=== PATIENT | male | born 1950 | race African-American/Black ===

== ENCOUNTER 2019-10-19 16:39 | Inpatient (IN) ==
[2019-10-19] MEDS ORDERED: ASPIRIN 325 MG TABLET PO STA (17:06)
[2019-10-19] MEDS ORDERED: ENOXAPARIN 100 MG/ML SYRINGE SUBCUT STA (17:16)
[2019-10-19] MEDS ORDERED: NITROGLYCERIN SL 0.4 MG TABLET SL PRN ×2 (17:17→19:04)
[2019-10-19] MEDS ORDERED: MORPHINE 4 MG/1 ML VIAL IV STA (17:17)
[2019-10-19] MEDS ORDERED: SODIUM CHLORIDE 0.9% 1,000 ML IV STA (17:30)
[2019-10-19 17:33] LABS: Basophils % 0.6 % (0.0-0.8); Eosinophils # 0.2 10*3/uL (0.0-0.87); Eosinophils % 3.7 % (0.00-10.9); Hematocrit 36.4 VOL% (42.0-52.0); Hemoglobin 11.8 GM/DL (14.0-18.0); Immature Granulocytes % 0.9 %; Immature Granulocytes Absolute 0.05 #; Lymphocytes # 0.7 10*3/uL (1.4-4.0); Lymphocytes % 12.9 % (21.2-54.2); Mean Corpuscular HGB Conc 32.4 GM/DL (32-36); Mean Corpuscular Volume 90.8 FL (87-102); Mean Platelet Volume 9.8 FL (9.6-12.0); Monocytes % 13.2 % (1.7-12.7); Neutrophils % 68.7 % (38.7-73.9); Platelet Count 234 T/CUMM (130-400); Red Blood Count 4.01 MC/CUMM (3.8-5.5); Red Cell Distribution Width 12.5 % (9.3-17.3); White Blood Count 5.4 T/CUMM (4-12)
[2019-10-19] MEDS ORDERED: MIDAZOLAM 2 MG/2 ML VIAL ONE (17:45)
[2019-10-19] MEDS ORDERED: fentaNYL 100 MCG/2 ML VIAL ONE (17:46)
[2019-10-19] MEDS ORDERED: LIDOCAINE 1% 20 ML VIAL ONE (17:47)
[2019-10-19 17:53] LABS: Albumin 3.3 G/DL (3.4-5.0); Bilirubin,Total 0.5 MG/DL (0.2-1.0); Osmolality,Calculated 279.2 MOS/KG (273-304); Total Protein 8.1 G/DL (6.4-8.3)
[2019-10-19 17:55] LABS: PT Patient Result 10.9 SECS (9.8-11.9)
[2019-10-19] MEDS ORDERED: TIROFIBAN 5,000 MCG/100 ML PREMIX IV ONE (18:16)
[2019-10-19] MEDS ORDERED: CLOPIDOGREL 300 MG TABLET ONE (18:46)
[2019-10-19] MEDS ORDERED: GLUCAGON 1 MG VIAL IM PRN (18:58)
[2019-10-19] MEDS ORDERED: ACETAMINOPHEN 325 MG TABLET PO PRN (18:58)
[2019-10-19] MEDS ORDERED: DEXTROSE 50% 25 GM/50 ML VIAL IV PRN (18:58)
[2019-10-19] MEDS ORDERED: TIROFIBAN 5,000 MCG/100 ML PREMIX IV SCH (19:00)
[2019-10-19] MEDS ORDERED: SODIUM CHLORIDE 0.9% 1,000 ML IV SCH (19:00)
[2019-10-19] MEDS ORDERED: FUROSEMIDE 40 MG/4 ML VIAL IV ONE (19:05)
[2019-10-19] MEDS ORDERED: FUROSEMIDE 40 MG/4 ML VIAL ONE (19:11)
[2019-10-19] MEDS ORDERED: ATORVASTATIN 40 MG TABLET PO SCH (21:00)
[2019-10-19] MEDS: INSULIN REGULAR 100 UNIT/ML SUBCUT SCH (21:27)
[2019-10-19] MEDS: BENZONATATE 100 MG CAPSULE PO PRN (21:27)
[2019-10-19] MEDS: carvediloL 12.5 MG TABLET PO SCH (21:27)
[2019-10-20 06:31] LABS: Basophils % 0.5 % (0.0-0.8); Eosinophils # 0.1 10*3/uL (0.0-0.87); Hematocrit 35.9 VOL% (42.0-52.0); Hemoglobin 11.8 GM/DL (14.0-18.0); Immature Granulocytes % 0.5 %; Immature Granulocytes Absolute 0.03 #; Lymphocytes # 0.6 10*3/uL (1.4-4.0); Lymphocytes % 9.5 % (21.2-54.2); Mean Corpuscular HGB Conc 32.9 GM/DL (32-36); Mean Corpuscular Volume 89.5 FL (87-102); Mean Platelet Volume 9.6 FL (9.6-12.0); Monocytes % 11.8 % (1.7-12.7); Neutrophils % 75.7 % (38.7-73.9); Platelet Count 233 T/CUMM (130-400); Red Blood Count 4.01 MC/CUMM (3.8-5.5); Red Cell Distribution Width 12.3 % (9.3-17.3); White Blood Count 6.1 T/CUMM (4-12)
[2019-10-20 07:13] LABS: Calcium 8.8 MG/DL (8.5-10.1); Osmolality,Calculated 277.2 MOS/KG (273-304); Risk Ratio 4.32; VLDL CHOLESTEROL 27.2 MG/DL
[2019-10-20 07:17] LABS: Troponin I 5.48 NG/ML (0.00-0.045)
[2019-10-20] MEDS ORDERED: ATORVASTATIN 80 MG TABLET PO SCH (07:32)
[2019-10-20] MEDS: INSULIN REGULAR 100 UNIT/ML SUBCUT SCH ×4 (09:09→21:03)
[2019-10-20] MEDS: hydroCHLOROthiazide 25 MG TABLET PO SCH (10:18)
[2019-10-20] MEDS: LOSARTAN 50 MG TABLET PO SCH (10:18)
[2019-10-20] MEDS: GLIMEPIRIDE 4 MG TABLET PO SCH (10:18)
[2019-10-20] MEDS: carvediloL 12.5 MG TABLET PO SCH ×2 (10:18→17:34)
[2019-10-20] MEDS: CLOPIDOGREL 75 MG TABLET PO SCH (10:18)
[2019-10-20] MEDS: ASPIRIN EC 81 MG TABLET PO SCH (10:18)
[2019-10-20] MEDS: EZETIMIBE 10 MG TABLET PO SCH (10:18)
[2019-10-20] MEDS: PANTOPRAZOLE 40 MG TABLET PO SCH (10:19)
[2019-10-20] MEDS: sitaGLIPtin 100 MG TABLET PO SCH (10:19)
[2019-10-20 11:39] LABS: Apearance,Urine CLEAR (Clear); Bacteria,Urine Occasional /HPF (Few); Bilirubin,Urine Negative (Negative); Blood, Urine Large mg/dL (Negative); Glucose,Urine (UA) Negative (Negative); Ketones,Urine Negative (Negative); Nitrite,Urine Negative (Negative); Protein,Urine Negative; RBC,Urine 254 /HPF (0-4); Squamous Epithelial Cell,Urine Occasional /HPF (0-10); Urine Color Yellow (Yellow); Urine Specific Gravity 1.016 (1.001-1.035); Urine Urobilinogen < 2.0 EU/DL (0.2-1.0); WBC,Urine 6 /HPF (0-6)
[2019-10-20] MEDS: BENZONATATE 100 MG CAPSULE PO PRN ×2 (12:01→21:00)
[2019-10-21 05:46] LABS: Basophils % 0.3 % (0.0-0.8); Eosinophils # 0.3 10*3/uL (0.0-0.87); Eosinophils % 4.4 % (0.00-10.9); Hemoglobin 11.1 GM/DL (14.0-18.0); Immature Granulocytes % 0.3 %; Immature Granulocytes Absolute 0.02 #; Lymphocytes # 0.4 10*3/uL (1.4-4.0); Mean Corpuscular HGB Conc 32.6 GM/DL (32-36); Mean Corpuscular Volume 89.9 FL (87-102); Mean Platelet Volume 9.6 FL (9.6-12.0); Monocytes % 12.1 % (1.7-12.7); Neutrophils % 75.9 % (38.7-73.9); Platelet Count 198 T/CUMM (130-400); Red Blood Count 3.78 MC/CUMM (3.8-5.5); Red Cell Distribution Width 12.4 % (9.3-17.3); White Blood Count 5.9 T/CUMM (4-12)
[2019-10-21 06:03] LABS: Blood Urea Nitrogen 33 MG/DL (7-18); Estimated Glom Filtration Rate 76 ML/MIN; Glucose 146 MG/DL (74-106)
[2019-10-21] MEDS: INSULIN REGULAR 100 UNIT/ML SUBCUT SCH (07:55)
[2019-10-21 08:05] VITALS: BP 109/68
[2019-10-21] MEDS: PANTOPRAZOLE 40 MG TABLET PO SCH (08:59)
[2019-10-21] MEDS: EZETIMIBE 10 MG TABLET PO SCH (08:59)
[2019-10-21] MEDS: CLOPIDOGREL 75 MG TABLET PO SCH (09:00)
[2019-10-21] MEDS: ASPIRIN EC 81 MG TABLET PO SCH (09:00)
[2019-10-21] MEDS: carvediloL 12.5 MG TABLET PO SCH (09:00)
[2019-10-21] MEDS: LOSARTAN 50 MG TABLET PO SCH (09:00)
[2019-10-21] MEDS: sitaGLIPtin 100 MG TABLET PO SCH (09:00)
[2019-10-21] MEDS: GLIMEPIRIDE 4 MG TABLET PO SCH (09:00)
[2019-10-21] MEDS: hydroCHLOROthiazide 25 MG TABLET PO SCH (09:00)
[2019-12-01] MEDS ORDERED: LEUPROLIDE 30 MG IM SCH (09:00)
== END 2019-10-21 10:21 | disposition home or self-care (01) | DRG 247 ==
LOC: N.ED 16:39 → N.EDINP 17:48 → N.TELES 20:06
PROVIDERS: ADMIT Internal Medicine Cardiovascular Disease; ATTEND Internal Medicine Cardiovascular Disease

== ENCOUNTER 2021-11-01 22:35 | Observation (INO) ==
[2021-11-01 23:28] LABS: Basophils % 0.4 % (0.0-0.8); Eosinophils # 0.1 10*3/uL (0.0-0.87); Eosinophils % 1.7 % (0.00-10.9); Hematocrit 38.6 VOL% (42.0-52.0); Hemoglobin 12.5 GM/DL (14.0-18.0); Immature Granulocytes % 0.6 %; Immature Granulocytes Absolute 0.03 #; Lymphocytes # 0.9 10*3/uL (1.4-4.0); Mean Corpuscular HGB Conc 32.4 GM/DL (32-36); Mean Corpuscular Volume 88.3 FL (87-102); Monocytes # 0.6 10*3/uL (0.11-0.8); Monocytes % 11.5 % (1.7-12.7); Neutrophils % 68.8 % (38.7-73.9); Platelet Count 223 T/CUMM (130-400); Red Blood Count 4.37 MC/CUMM (3.8-5.5); Red Cell Distribution Width 13.1 % (9.3-17.3); White Blood Count 5.2 T/CUMM (4-12)
[2021-11-01 23:46] LABS: Calcium 9.3 MG/DL (8.5-10.1); Osmolality,Calculated 277.2 MOS/KG (273-304); Potassium 3.1 MMOL/L (3.5-5.1)
[2021-11-01] MEDS ORDERED: ASPIRIN CHEW 81 MG TABLET PO STA (23:53)
[2021-11-01] MEDS ORDERED: SODIUM CHLORIDE 0.9% 1,000 ML IV STA (23:53)
[2021-11-02] MEDS ORDERED: POTASSIUM CHLORIDE 20 MEQ TABLET PO STA (01:00)
[2021-11-02] MEDS ORDERED: MAGNESIUM OXIDE 400 MG TABLET PO ONE (01:01)
[2021-11-02] MEDS ORDERED: ONDANSETRON 4 MG/2 ML VIAL IV PRN (01:14)
[2021-11-02] MEDS ORDERED: POTASSIUM CHLORIDE RIDER 10 MEQ/100 ML PREMIX IV PRN (01:14)
[2021-11-02] MEDS ORDERED: GLUCAGON 1 MG VIAL IM PRN (01:14)
[2021-11-02] MEDS ORDERED: ACETAMINOPHEN 325 MG TABLET PO PRN (01:14)
[2021-11-02] MEDS ORDERED: MAGNESIUM SULF RIDER 4 GM/100 ML PREMIX IV PRN (01:14)
[2021-11-02] MEDS ORDERED: MAGNESIUM SULF RIDER 2 GM/50 ML PREMIX IV PRN (01:14)
[2021-11-02] MEDS ORDERED: NITROGLYCERIN SL 0.4 MG TABLET SL PRN (01:24)
[2021-11-02] MEDS ORDERED: DEXTROSE 10% 250 ML BAG IV PRN (01:31)
[2021-11-02] MEDS: POTASSIUM CHLORIDE 20 MEQ TABLET PO PRN ×2 (03:17→06:18)
[2021-11-02 05:23] LABS: Basophils % 0.4 % (0.0-0.8); Eosinophils # 0.1 10*3/uL (0.0-0.87); Eosinophils % 1.7 % (0.00-10.9); Hematocrit 39.7 VOL% (42.0-52.0); Hemoglobin 12.7 GM/DL (14.0-18.0); Immature Granulocytes % 0.4 %; Immature Granulocytes Absolute 0.02 #; Lymphocytes % 22.1 % (21.2-54.2); Mean Corpuscular Volume 90.2 FL (87-102); Mean Platelet Volume 10.1 FL (9.6-12.0); Monocytes # 0.6 10*3/uL (0.11-0.8); Monocytes % 12.1 % (1.7-12.7); Neutrophils % 63.3 % (38.7-73.9); Platelet Count 242 T/CUMM (130-400); Red Cell Distribution Width 13.1 % (9.3-17.3); White Blood Count 4.6 T/CUMM (4-12)
[2021-11-02 05:53] LABS: Calcium 9.4 MG/DL (8.5-10.1); Potassium 3.5 MMOL/L (3.5-5.1); Risk Ratio 3.36; Thyroid Stimulating Hormone 3.19 uIU/ml (0.358-3.74); VLDL Cholesterol 14.2 MG/DL
[2021-11-02] MEDS ORDERED: ISOSORBIDE MONONITRATE 60 MG TABLET PO SCH (09:00)
[2021-11-02] MEDS ORDERED: metOLazone 5 MG TABLET PO SCH (09:00)
[2021-11-02] MEDS: INSULIN REGULAR 100 UNIT/ML SUBCUT SCH ×4 (10:10→22:36)
[2021-11-02] MEDS: carvediloL 12.5 MG TABLET PO SCH ×2 (10:12→21:08)
[2021-11-02] MEDS: ENOXAPARIN 40 MG/0.4 ML SYRINGE SUBCUT SCH (10:12)
[2021-11-02] MEDS: FUROSEMIDE 40 MG TABLET PO SCH ×2 (10:12→21:08)
[2021-11-02] MEDS: POTASSIUM CHLORIDE 20 MEQ TABLET PO SCH ×2 (10:13→21:08)
[2021-11-02] MEDS: CETIRIZINE 10 MG TABLET PO SCH (10:13)
[2021-11-02] MEDS: PANTOPRAZOLE 40 MG TABLET PO SCH (10:13)
[2021-11-02] MEDS: CLOPIDOGREL 75 MG TABLET PO SCH (10:13)
[2021-11-02] MEDS: SPIRONOLACTONE 25 MG TABLET PO SCH (10:13)
[2021-11-02] MEDS: MAGNESIUM OXIDE 400 MG TABLET PO SCH (10:14)
[2021-11-02] MEDS: ASPIRIN EC 81 MG TABLET PO SCH (10:14)
[2021-11-02] MEDS: DOCUSATE SODIUM 100 MG CAPSULE PO SCH ×2 (10:14→21:08)
[2021-11-02] MEDS: EZETIMIBE 10 MG TABLET PO SCH (10:14)
[2021-11-02] MEDS: metOLazone 2.5 MG TABLET PO SCH (10:42)
[2021-11-02] MEDS: DAPAGLIFLOZIN 10 MG TABLET PO SCH (12:30)
[2021-11-02] MEDS ORDERED: ATORVASTATIN 80 MG TABLET PO SCH (21:00)
[2021-11-02] MEDS: SACUBITRIL/VALSARTAN 49-51 MG TABLET PO SCH (21:07)
[2021-11-03 05:31] LABS: Basophils % 0.6 % (0.0-0.8); Eosinophils # 0.1 10*3/uL (0.0-0.87); Eosinophils % 2.8 % (0.00-10.9); Hematocrit 39.7 VOL% (42.0-52.0); Hemoglobin 12.6 GM/DL (14.0-18.0); Immature Granulocytes % 0.4 %; Immature Granulocytes Absolute 0.02 #; Mean Corpuscular HGB Conc 31.7 GM/DL (32-36); Mean Corpuscular Volume 89.6 FL (87-102); Mean Platelet Volume 10.2 FL (9.6-12.0); Monocytes # 0.8 10*3/uL (0.11-0.8); Monocytes % 16.2 % (1.7-12.7); Platelet Count 234 T/CUMM (130-400); Red Blood Count 4.43 MC/CUMM (3.8-5.5); Red Cell Distribution Width 13.1 % (9.3-17.3)
[2021-11-03 05:45] LABS: Calcium 9.5 MG/DL (8.5-10.1); Osmolality,Calculated 276.2 MOS/KG (273-304); Potassium 3.8 MMOL/L (3.5-5.1)
[2021-11-03 05:58] LABS: Eosinophils 5 % (0-10); Lymphocytes 15 % (20-55); Microcytosis Slight; Ovalocytes Slight; Total Cells Counted 100
[2021-11-03] MEDS: INSULIN REGULAR 100 UNIT/ML SUBCUT SCH ×2 (08:38→12:40)
[2021-11-03] MEDS ORDERED: ERGOCALCIFEROL 50,000 UNIT CAPSULE PO SCH (09:00)
[2021-11-03] MEDS ORDERED: carvediloL 6.25 MG TABLET PO SCH (09:00)
[2021-11-03] MEDS: metOLazone 2.5 MG TABLET PO SCH (10:01)
[2021-11-03] MEDS: SACUBITRIL/VALSARTAN 49-51 MG TABLET PO SCH (10:01)
[2021-11-03] MEDS: PANTOPRAZOLE 40 MG TABLET PO SCH (10:01)
[2021-11-03] MEDS: DAPAGLIFLOZIN 10 MG TABLET PO SCH (10:01)
[2021-11-03] MEDS: CETIRIZINE 10 MG TABLET PO SCH (10:02)
[2021-11-03] MEDS: FUROSEMIDE 40 MG TABLET PO SCH (10:02)
[2021-11-03] MEDS: DOCUSATE SODIUM 100 MG CAPSULE PO SCH (10:02)
[2021-11-03] MEDS: ASPIRIN EC 81 MG TABLET PO SCH (10:02)
[2021-11-03] MEDS: POTASSIUM CHLORIDE 20 MEQ TABLET PO SCH (10:02)
[2021-11-03] MEDS: EZETIMIBE 10 MG TABLET PO SCH (10:02)
[2021-11-03] MEDS: SPIRONOLACTONE 25 MG TABLET PO SCH (10:02)
[2021-11-03] MEDS: CLOPIDOGREL 75 MG TABLET PO SCH (10:03)
[2021-11-03] MEDS: MAGNESIUM OXIDE 400 MG TABLET PO SCH (10:03)
[2021-11-03] MEDS: ENOXAPARIN 40 MG/0.4 ML SYRINGE SUBCUT SCH (10:09)
[2021-11-03 12:27] VITALS: BP 114/71
== END 2021-11-03 15:45 | disposition home or self-care (01) ==
LOC: N.EDINP 22:35 → N.ED 22:35 → N.TELES 11-02 02:42
PROVIDERS: ADMIT Internal Medicine; ATTEND Internal Medicine

== ENCOUNTER 2021-11-19 00:19 | Inpatient (IN) ==
[2021-11-19 00:53] LABS: Basophils % 0.3 % (0.0-0.8); Eosinophils # 0.1 10*3/uL (0.0-0.87); Eosinophils % 1.6 % (0.00-10.9); Hematocrit 40.5 VOL% (42.0-52.0); Hemoglobin 13.1 GM/DL (14.0-18.0); Immature Granulocytes % 0.5 %; Immature Granulocytes Absolute 0.03 #; Lymphocytes # 0.9 10*3/uL (1.4-4.0); Lymphocytes % 14.4 % (21.2-54.2); Mean Corpuscular HGB Conc 32.3 GM/DL (32-36); Mean Corpuscular Volume 88.2 FL (87-102); Mean Platelet Volume 9.5 FL (9.6-12.0); Monocytes # 0.6 10*3/uL (0.11-0.8); Neutrophils % 74.2 % (38.7-73.9); Platelet Count 274 T/CUMM (130-400); Red Blood Count 4.59 MC/CUMM (3.8-5.5); Red Cell Distribution Width 12.9 % (9.3-17.3); White Blood Count 6.3 T/CUMM (4-12)
[2021-11-19] MEDS ORDERED: MORPHINE 2 MG/1 ML SYRINGE IV STA (00:58)
[2021-11-19] MEDS ORDERED: ONDANSETRON 4 MG/2 ML VIAL IV STA (00:59)
[2021-11-19 01:06] LABS: Calcium 8.9 MG/DL (8.5-10.1); Osmolality,Calculated 277.7 MOS/KG (273-304); Potassium 4.6 MMOL/L (3.5-5.1)
[2021-11-19] MEDS ORDERED: MORPHINE 2 MG/1 ML SYRINGE IV PRN (02:32)
[2021-11-19] MEDS ORDERED: ACETAMINOPHEN 325 MG TABLET PO PRN (02:32)
[2021-11-19] MEDS ORDERED: NITROGLYCERIN SL 0.4 MG TABLET SL PRN (02:32)
[2021-11-19] MEDS ORDERED: ALUM/MAG/SIMETH/LIDO VISC 1:1 30 ML BOTTLE PO PRN (02:32)
[2021-11-19] MEDS ORDERED: GLUCAGON 1 MG VIAL IM PRN (02:32)
[2021-11-19] MEDS ORDERED: ONDANSETRON 4 MG/2 ML VIAL IV PRN (02:32)
[2021-11-19] MEDS ORDERED: LORATADINE 10 MG TABLET PO PRN (02:40)
[2021-11-19] MEDS ORDERED: HydrOXYzine PAMOATE 25 MG CAPSULE PO PRN (02:40)
[2021-11-19] MEDS ORDERED: DEXTROSE 10% 250 ML BAG IV PRN (03:00)
[2021-11-19] MEDS ORDERED: ENOXAPARIN 120 MG/0.8 ML SYRINGE SUBCUT ONE (04:00)
[2021-11-19 04:12] LABS: INR 1.1; PT Patient Result 11.9 SECS (10.1-12.1); Partial Thromboplastin Time 23.7 SECS (23.7-32.9)
[2021-11-19 07:04] LABS: CKMB % 5.91 %
[2021-11-19 07:06] LABS: High Sensitive Troponin I* 619.9 ng/L (0-78)
[2021-11-19] MEDS: INSULIN REGULAR 100 UNIT/ML SUBCUT SCH ×4 (08:38→22:17)
[2021-11-19] MEDS: ASPIRIN EC 81 MG TABLET PO SCH (08:38)
[2021-11-19] MEDS: carvediloL 12.5 MG TABLET PO SCH ×2 (08:38→22:17)
[2021-11-19] MEDS: PREGABALIN 75 MG CAPSULE PO SCH ×2 (08:39→22:17)
[2021-11-19] MEDS: FUROSEMIDE 20 MG TABLET PO SCH ×3 (08:39→22:17)
[2021-11-19] MEDS: hydroCHLOROthiazide 25 MG TABLET PO SCH (08:39)
[2021-11-19] MEDS: FERROUS SULFATE 325 MG TABLET PO SCH (08:39)
[2021-11-19] MEDS: ISOSORBIDE MONONITRATE 20 MG TABLET PO SCH (08:39)
[2021-11-19] MEDS: LOSARTAN 50 MG TABLET PO SCH (08:39)
[2021-11-19] MEDS: ATORVASTATIN 80 MG TABLET PO SCH (08:39)
[2021-11-19] MEDS: metOLazone 5 MG TABLET PO SCH (08:40)
[2021-11-19] MEDS: CLOPIDOGREL 75 MG TABLET PO SCH (08:40)
[2021-11-19] MEDS: cilostazoL 50 MG TABLET PO SCH ×2 (08:40→22:17)
[2021-11-19] MEDS: EZETIMIBE 10 MG TABLET PO SCH (08:40)
[2021-11-19] MEDS ORDERED: POTASSIUM CHLORIDE RIDER 10 MEQ/100 ML PREMIX IV PRN (09:38)
[2021-11-19] MEDS ORDERED: MAGNESIUM SULF RIDER 2 GM/50 ML PREMIX IV PRN (09:38)
[2021-11-19] MEDS ORDERED: ATORVASTATIN 40 MG TABLET PO SCH (21:00)
[2021-11-20 05:45] LABS: Basophils % 0.2 % (0.0-0.8); Eosinophils # 0.1 10*3/uL (0.0-0.87); Eosinophils % 2.4 % (0.00-10.9); Hematocrit 39.7 VOL% (42.0-52.0); Hemoglobin 12.5 GM/DL (14.0-18.0); Immature Granulocytes % 0.4 %; Immature Granulocytes Absolute 0.02 #; Lymphocytes # 0.8 10*3/uL (1.4-4.0); Lymphocytes % 14.8 % (21.2-54.2); Mean Corpuscular HGB Conc 31.5 GM/DL (32-36); Mean Corpuscular Volume 90.2 FL (87-102); Mean Platelet Volume 9.6 FL (9.6-12.0); Monocytes # 0.8 10*3/uL (0.11-0.8); Monocytes % 14.2 % (1.7-12.7); Platelet Count 232 T/CUMM (130-400); Red Cell Distribution Width 12.8 % (9.3-17.3); White Blood Count 5.5 T/CUMM (4-12)
[2021-11-20 06:13] LABS: Calcium 9.6 MG/DL (8.5-10.1); Osmolality,Calculated 278.2 MOS/KG (273-304); Potassium 4.7 MMOL/L (3.5-5.1)
[2021-11-20] MEDS ORDERED: MAGNESIUM SULF RIDER 2 GM/50 ML PREMIX IV PRN (06:53)
[2021-11-20] MEDS ORDERED: diphenhydrAMINE CAP 50 MG CAPSULE PO ONE ×2 (06:53→10:00)
[2021-11-20] MEDS ORDERED: POTASSIUM CHLORIDE RIDER 10 MEQ/100 ML PREMIX IV PRN (06:53)
[2021-11-20] MEDS ORDERED: diphenhydrAMINE CAP 25 MG CAPSULE ONE (06:55)
[2021-11-20] MEDS ORDERED: DIAZEPAM 5 MG TABLET ONE (06:55)
[2021-11-20] MEDS ORDERED: DIAZEPAM 5 MG TABLET PO ONE (07:30)
[2021-11-20 07:32] LABS: CKMB % 7.05 %
[2021-11-20 07:35] LABS: High Sensitive Troponin I* 10156.6 ng/L (0-78)
[2021-11-20] MEDS: INSULIN REGULAR 100 UNIT/ML SUBCUT SCH ×4 (07:43→22:09)
[2021-11-20] MEDS ORDERED: fentaNYL 100 MCG/2 ML VIAL ONE (08:24)
[2021-11-20] MEDS ORDERED: MIDAZOLAM 2 MG/2 ML VIAL ONE (08:24)
[2021-11-20] MEDS ORDERED: ASPIRIN 325 MG TABLET ONE (08:34)
[2021-11-20] MEDS ORDERED: TIROFIBAN 5,000 MCG/100 ML PREMIX IV ONE (08:48)
[2021-11-20] MEDS ORDERED: ENOXAPARIN 30 MG/0.3 ML SYRINGE ONE (08:48)
[2021-11-20] MEDS ORDERED: TIROFIBAN 5,000 MCG/100 ML PREMIX IV SCH (08:58)
[2021-11-20] MEDS ORDERED: CLOPIDOGREL 300 MG TABLET ONE (09:06)
[2021-11-20] MEDS: ENOXAPARIN 40 MG/0.4 ML SYRINGE SUBCUT SCH (10:49)
[2021-11-20] MEDS: ATORVASTATIN 80 MG TABLET PO SCH (10:49)
[2021-11-20] MEDS: ASPIRIN EC 81 MG TABLET PO SCH (10:49)
[2021-11-20] MEDS: CLOPIDOGREL 75 MG TABLET PO SCH (10:50)
[2021-11-20] MEDS: FUROSEMIDE 20 MG TABLET PO SCH ×3 (10:52→22:10)
[2021-11-20] MEDS: carvediloL 12.5 MG TABLET PO SCH ×2 (10:52→22:09)
[2021-11-20] MEDS: cilostazoL 50 MG TABLET PO SCH ×2 (10:52→22:10)
[2021-11-20] MEDS: EZETIMIBE 10 MG TABLET PO SCH (10:52)
[2021-11-20] MEDS: hydroCHLOROthiazide 25 MG TABLET PO SCH (10:52)
[2021-11-20] MEDS: metOLazone 5 MG TABLET PO SCH (10:53)
[2021-11-20] MEDS: FERROUS SULFATE 325 MG TABLET PO SCH (10:53)
[2021-11-20] MEDS: LOSARTAN 50 MG TABLET PO SCH (10:53)
[2021-11-20] MEDS: ISOSORBIDE MONONITRATE 20 MG TABLET PO SCH (10:59)
[2021-11-20] MEDS: PREGABALIN 75 MG CAPSULE PO SCH ×2 (11:08→22:10)
[2021-11-20] MEDS: SODIUM CHLORIDE 0.9% 1,000 ML IV SCH (18:36)
[2021-11-21 05:20] LABS: Basophils % 0.2 % (0.0-0.8); Eosinophils # 0.2 10*3/uL (0.0-0.87); Eosinophils % 4.4 % (0.00-10.9); Hematocrit 36.5 VOL% (42.0-52.0); Hemoglobin 11.5 GM/DL (14.0-18.0); Immature Granulocytes % 0.4 %; Immature Granulocytes Absolute 0.02 #; Lymphocytes # 0.9 10*3/uL (1.4-4.0); Lymphocytes % 18.1 % (21.2-54.2); Mean Corpuscular HGB Conc 31.5 GM/DL (32-36); Mean Corpuscular Volume 91.5 FL (87-102); Mean Platelet Volume 9.5 FL (9.6-12.0); Monocytes # 0.7 10*3/uL (0.11-0.8); Monocytes % 14.3 % (1.7-12.7); Neutrophils % 62.6 % (38.7-73.9); Platelet Count 199 T/CUMM (130-400); Red Blood Count 3.99 MC/CUMM (3.8-5.5); White Blood Count 5.2 T/CUMM (4-12)
[2021-11-21 05:45] LABS: CKMB % 3.51 %; Risk Ratio 3.37; VLDL Cholesterol 15.2 MG/DL
[2021-11-21 05:46] LABS: High Sensitive Troponin I* 8352.3 ng/L (0-78)
[2021-11-21 05:49] LABS: Calcium 8.9 MG/DL (8.5-10.1); Osmolality,Calculated 273.7 MOS/KG (273-304); Potassium 4.7 MMOL/L (3.5-5.1)
[2021-11-21] MEDS: EZETIMIBE 10 MG TABLET PO SCH (09:13)
[2021-11-21] MEDS: carvediloL 12.5 MG TABLET PO SCH ×2 (09:13→12:49)
[2021-11-21] MEDS: ATORVASTATIN 80 MG TABLET PO SCH (09:13)
[2021-11-21] MEDS: cilostazoL 50 MG TABLET PO SCH ×2 (09:14→22:45)
[2021-11-21] MEDS: ASPIRIN EC 81 MG TABLET PO SCH (09:14)
[2021-11-21] MEDS: LOSARTAN 50 MG TABLET PO SCH ×2 (09:14→12:49)
[2021-11-21] MEDS: FERROUS SULFATE 325 MG TABLET PO SCH (09:14)
[2021-11-21] MEDS: CLOPIDOGREL 75 MG TABLET PO SCH (09:14)
[2021-11-21] MEDS: PREGABALIN 75 MG CAPSULE PO SCH ×2 (09:14→22:46)
[2021-11-21] MEDS: ISOSORBIDE MONONITRATE 20 MG TABLET PO SCH (09:14)
[2021-11-21] MEDS: SODIUM CHLORIDE 0.9% 1,000 ML IV SCH ×2 (09:15→15:25)
[2021-11-21] MEDS: ENOXAPARIN 40 MG/0.4 ML SYRINGE SUBCUT SCH (09:15)
[2021-11-21] MEDS: INSULIN REGULAR 100 UNIT/ML SUBCUT SCH ×4 (09:33→22:46)
[2021-11-21] MEDS: metOLazone 5 MG TABLET PO SCH (09:36)
[2021-11-22] MEDS: SODIUM CHLORIDE 0.9% 1,000 ML IV SCH (03:51)
[2021-11-22 04:38] LABS: Basophils % 0.4 % (0.0-0.8); Eosinophils # 0.3 10*3/uL (0.0-0.87); Eosinophils % 6.4 % (0.00-10.9); Hematocrit 34.5 VOL% (42.0-52.0); Hemoglobin 10.9 GM/DL (14.0-18.0); Immature Granulocytes % 0.2 %; Immature Granulocytes Absolute 0.01 #; Lymphocytes # 0.8 10*3/uL (1.4-4.0); Lymphocytes % 16.5 % (21.2-54.2); Mean Corpuscular HGB Conc 31.6 GM/DL (32-36); Mean Corpuscular Volume 89.8 FL (87-102); Mean Platelet Volume 9.5 FL (9.6-12.0); Monocytes # 0.7 10*3/uL (0.11-0.8); Monocytes % 13.8 % (1.7-12.7); Neutrophils % 62.7 % (38.7-73.9); Platelet Count 202 T/CUMM (130-400); Red Blood Count 3.84 MC/CUMM (3.8-5.5); Red Cell Distribution Width 12.8 % (9.3-17.3); White Blood Count 4.7 T/CUMM (4-12)
[2021-11-22 05:02] LABS: Calcium 9.1 MG/DL (8.5-10.1); Osmolality,Calculated 272.7 MOS/KG (273-304); Potassium 3.8 MMOL/L (3.5-5.1)
[2021-11-22] MEDS ORDERED: ENOXAPARIN 30 MG/0.3 ML SYRINGE SUBCUT SCH (09:00)
[2021-11-22] MEDS ORDERED: BISACODYL 10 MG SUPP RECTAL ONE (09:23)
[2021-11-22] MEDS: ASPIRIN EC 81 MG TABLET PO SCH (09:57)
[2021-11-22] MEDS: EZETIMIBE 10 MG TABLET PO SCH (09:57)
[2021-11-22] MEDS: FERROUS SULFATE 325 MG TABLET PO SCH (09:57)
[2021-11-22] MEDS: ISOSORBIDE MONONITRATE 20 MG TABLET PO SCH (09:57)
[2021-11-22] MEDS: cilostazoL 50 MG TABLET PO SCH (09:57)
[2021-11-22] MEDS: PREGABALIN 75 MG CAPSULE PO SCH (09:57)
[2021-11-22] MEDS: CLOPIDOGREL 75 MG TABLET PO SCH (09:57)
[2021-11-22] MEDS: ATORVASTATIN 80 MG TABLET PO SCH (09:58)
[2021-11-22] MEDS: INSULIN REGULAR 100 UNIT/ML SUBCUT SCH (09:59)
[2021-11-22 14:20] VITALS: BP 110/67
[2021-11-24] MEDS ORDERED: ERGOCALCIFEROL 50,000 UNIT CAPSULE PO SCH (09:00)
== END 2021-11-22 13:28 | disposition home or self-care (01) | DRG 247 ==
LOC: EDUNIT# → N.ED 00:19 → N.EDINP 00:19 → SUATTDRO 02:32 → N.2W 04:33 → SUATTDRO 12:45 → N.TELES 14:08
PROVIDERS: ADMIT Internal Medicine; ATTEND Internal Medicine Cardiovascular Disease
PROC: CLCCHCL (ICD-10-PCS; 2021-11-20 09:45)

== ENCOUNTER 2022-03-02 04:42 | Observation (INO) ==
[2022-03-02 05:05] LABS: Basophils % 0.4 % (0.0-0.8); Eosinophils % 0.6 % (0.00-10.9); Hematocrit 37.8 VOL% (42.0-52.0); Hemoglobin 11.8 GM/DL (14.0-18.0); Immature Granulocytes % 0.1 %; Immature Granulocytes Absolute 0.01 #; Lymphocytes # 0.7 10*3/uL (1.4-4.0); Lymphocytes % 10.5 % (21.2-54.2); Mean Corpuscular HGB Conc 31.2 GM/DL (32-36); Mean Corpuscular Volume 92.2 FL (87-102); Mean Platelet Volume 9.2 FL (9.6-12.0); Monocytes # 0.6 10*3/uL (0.11-0.8); Monocytes % 8.4 % (1.7-12.7); Platelet Count 303 T/CUMM (130-400); Red Cell Distribution Width 13.5 % (9.3-17.3); White Blood Count 7.1 T/CUMM (4-12)
[2022-03-02 05:31] LABS: Albumin 3.6 G/DL (3.4-5.0); Bilirubin,Total 2.4 MG/DL (0.20-1.00); Calcium 9.3 MG/DL (8.5-10.1); Osmolality,Calculated 272.5 MOS/KG (273-304); Potassium 3.9 MMOL/L (3.5-5.1); Total Protein 7.8 G/DL (6.4-8.2)
[2022-03-02] MEDS ORDERED: ENOXAPARIN 30 MG/0.3 ML SYRINGE SUBCUT STA (05:35)
[2022-03-02] MEDS ORDERED: ENOXAPARIN 100 MG/ML SYRINGE SUBCUT STA (05:37)
[2022-03-02] MEDS ORDERED: ONDANSETRON 4 MG/2 ML VIAL IV PRN (05:51)
[2022-03-02] MEDS ORDERED: FUROSEMIDE 40 MG/4 ML VIAL IV ONE (05:51)
[2022-03-02] MEDS ORDERED: hydrALAZINE 20 MG/1 ML VIAL IV PRN (05:51)
[2022-03-02] MEDS ORDERED: ACETAMINOPHEN 325 MG TABLET PO PRN (05:51)
[2022-03-02] MEDS ORDERED: NITROGLYCERIN SL 0.4 MG TABLET SL PRN (06:03)
[2022-03-02] MEDS: FERROUS SULFATE 325 MG TABLET PO SCH (08:45)
[2022-03-02] MEDS: INSULIN LISPRO 100 UNIT/ML SUBCUT SCH ×4 (08:45→20:33)
[2022-03-02] MEDS: ASPIRIN EC 81 MG TABLET PO SCH (08:45)
[2022-03-02] MEDS: PANTOPRAZOLE 40 MG TABLET PO SCH (08:46)
[2022-03-02] MEDS: ATORVASTATIN 80 MG TABLET PO SCH (08:46)
[2022-03-02] MEDS: MAGNESIUM OXIDE 400 MG TABLET PO SCH (08:46)
[2022-03-02] MEDS: POTASSIUM CHLORIDE 20 MEQ TABLET PO SCH (08:46)
[2022-03-02] MEDS ORDERED: CLOPIDOGREL 75 MG TABLET PO SCH (09:00)
[2022-03-02] MEDS: FUROSEMIDE 40 MG/4 ML VIAL IV SCH (16:33)
[2022-03-02] MEDS: cilostazoL 50 MG TABLET PO SCH (20:37)
[2022-03-03 05:06] LABS: Basophils % 0.4 % (0.0-0.8); Eosinophils # 0.1 10*3/uL (0.0-0.87); Eosinophils % 1.9 % (0.00-10.9); Immature Granulocytes % 0.4 %; Immature Granulocytes Absolute 0.02 #; Lymphocytes # 0.8 10*3/uL (1.4-4.0); Mean Corpuscular HGB Conc 31.4 GM/DL (32-36); Mean Corpuscular Volume 91.4 FL (87-102); Mean Platelet Volume 9.4 FL (9.6-12.0); Monocytes # 0.5 10*3/uL (0.11-0.8); Neutrophils % 72.3 % (38.7-73.9); Platelet Count 282 T/CUMM (130-400); Red Blood Count 3.83 MC/CUMM (3.8-5.5); Red Cell Distribution Width 13.6 % (9.3-17.3); White Blood Count 5.3 T/CUMM (4-12)
[2022-03-03 05:31] LABS: Calcium 9.4 MG/DL (8.5-10.1); Osmolality,Calculated 278.1 MOS/KG (273-304); Potassium 3.5 MMOL/L (3.5-5.1)
[2022-03-03] MEDS: INSULIN LISPRO 100 UNIT/ML SUBCUT SCH ×4 (08:43→20:27)
[2022-03-03] MEDS: POTASSIUM CHLORIDE 20 MEQ TABLET PO SCH (08:48)
[2022-03-03] MEDS: PANTOPRAZOLE 40 MG TABLET PO SCH (08:48)
[2022-03-03] MEDS: EZETIMIBE 10 MG TABLET PO SCH (08:49)
[2022-03-03] MEDS: FUROSEMIDE 40 MG/4 ML VIAL IV SCH ×2 (08:49→16:12)
[2022-03-03] MEDS: ASPIRIN EC 81 MG TABLET PO SCH (08:50)
[2022-03-03] MEDS: MAGNESIUM OXIDE 400 MG TABLET PO SCH (08:50)
[2022-03-03] MEDS: ATORVASTATIN 80 MG TABLET PO SCH (08:50)
[2022-03-03] MEDS: ISOSORBIDE MONONITRATE 20 MG TABLET PO SCH (08:50)
[2022-03-03] MEDS: cilostazoL 50 MG TABLET PO SCH ×2 (09:00→20:26)
[2022-03-03] MEDS: FERROUS SULFATE 325 MG TABLET PO SCH (09:00)
[2022-03-03] MEDS ORDERED: POTASSIUM CHLORIDE 20 MEQ TABLET PO ONE (10:15)
[2022-03-03] MEDS: ENOXAPARIN 40 MG/0.4 ML SYRINGE SUBCUT SCH (13:59)
[2022-03-04 05:42] LABS: Basophils % 0.4 % (0.0-0.8); Eosinophils # 0.1 10*3/uL (0.0-0.87); Eosinophils % 2.1 % (0.00-10.9); Hematocrit 35.7 VOL% (42.0-52.0); Hemoglobin 11.1 GM/DL (14.0-18.0); Immature Granulocytes % 0.4 %; Immature Granulocytes Absolute 0.02 #; Lymphocytes # 0.8 10*3/uL (1.4-4.0); Lymphocytes % 13.5 % (21.2-54.2); Mean Corpuscular HGB Conc 31.1 GM/DL (32-36); Mean Corpuscular Volume 91.5 FL (87-102); Mean Platelet Volume 9.5 FL (9.6-12.0); Monocytes # 0.5 10*3/uL (0.11-0.8); Monocytes % 9.3 % (1.7-12.7); Neutrophils % 74.3 % (38.7-73.9); Platelet Count 292 T/CUMM (130-400); Red Cell Distribution Width 13.7 % (9.3-17.3); White Blood Count 5.6 T/CUMM (4-12)
[2022-03-04 06:14] LABS: Calcium 9.7 MG/DL (8.5-10.1); Osmolality,Calculated 283.8 MOS/KG (273-304); Potassium 3.3 MMOL/L (3.5-5.1)
[2022-03-04] MEDS: INSULIN LISPRO 100 UNIT/ML SUBCUT SCH ×2 (08:02→12:36)
[2022-03-04] MEDS: MAGNESIUM OXIDE 400 MG TABLET PO SCH (08:46)
[2022-03-04] MEDS: PANTOPRAZOLE 40 MG TABLET PO SCH (08:46)
[2022-03-04] MEDS: ATORVASTATIN 80 MG TABLET PO SCH (08:46)
[2022-03-04] MEDS: FERROUS SULFATE 325 MG TABLET PO SCH (08:46)
[2022-03-04] MEDS: POTASSIUM CHLORIDE 20 MEQ TABLET PO SCH (08:46)
[2022-03-04] MEDS: EZETIMIBE 10 MG TABLET PO SCH (08:46)
[2022-03-04] MEDS: ASPIRIN EC 81 MG TABLET PO SCH (08:47)
[2022-03-04] MEDS: ISOSORBIDE MONONITRATE 20 MG TABLET PO SCH (08:47)
[2022-03-04] MEDS: FUROSEMIDE 40 MG/4 ML VIAL IV SCH (08:48)
[2022-03-04] MEDS: cilostazoL 50 MG TABLET PO SCH (08:51)
[2022-03-04] MEDS: ENOXAPARIN 40 MG/0.4 ML SYRINGE SUBCUT SCH (12:35)
[2022-03-04 12:49] VITALS: BP 120/70
[2022-03-04] MEDS ORDERED: POTASSIUM CHLORIDE 20 MEQ TABLET PO ONE (13:05)
== END 2022-03-04 14:16 | disposition home or self-care (01) ==
LOC: N.ED 04:42 → N.EDINP 04:42 → SUATTDRO 05:51 → N.TELEN 16:05
PROVIDERS: ADMIT Internal Medicine; ATTEND Hospitalist

== ENCOUNTER 2022-05-09 05:56 | Inpatient (IN) ==
[2022-05-09 06:44] LABS: Basophils % 0.1 % (0.0-0.8); Hemoglobin 9.1 GM/DL (14.0-18.0); Immature Granulocytes Absolute 0.16 #; Lymphocytes # 0.6 10*3/uL (1.4-4.0); Lymphocytes % 3.6 % (21.2-54.2); Mean Corpuscular HGB Conc 32.5 GM/DL (32-36); Mean Platelet Volume 9.4 FL (9.6-12.0); Monocytes # 1.1 10*3/uL (0.11-0.8); Monocytes % 6.8 % (1.7-12.7); NRBC # 0.02 10*3/uL; Neutrophils % 88.5 % (38.7-73.9); Platelet Count 565 T/CUMM (130-400); Red Cell Distribution Width 18.5 % (9.3-17.3); White Blood Count 16.5 T/CUMM (4-12)
[2022-05-09 06:50] LABS: INR 1.3
[2022-05-09 06:56] LABS: Albumin 1.9 G/DL (3.4-5.0); Bilirubin,Total 3.9 MG/DL (0.20-1.00); Calcium 8.9 MG/DL (8.5-10.1); Osmolality,Calculated 254.6 MOS/KG (273-304); Potassium 3.9 MMOL/L (3.5-5.1); Total Protein 6.7 G/DL (6.4-8.2)
[2022-05-09 07:08] LABS: Hypochromia 1+; Lymphocytes 4 % (20-55); Microcytosis 1+; Platelet Estimate Increased; Total Cells Counted 100
[2022-05-09] MEDS ORDERED: SODIUM CHLORIDE 0.9% 1,000 ML IV STA (07:11)
[2022-05-09] MEDS ORDERED: ACETAMINOPHEN 325 MG TABLET PO PRN (09:42)
[2022-05-09] MEDS ORDERED: DOCUSATE SODIUM 100 MG CAPSULE PO PRN (09:42)
[2022-05-09] MEDS ORDERED: hydrALAZINE 20 MG/1 ML VIAL IV PRN (09:42)
[2022-05-09] MEDS ORDERED: ONDANSETRON 4 MG/2 ML VIAL IV PRN (09:42)
[2022-05-09] MEDS ORDERED: ALBUTEROL 2.5 MG/3 ML NEB RESP TX PRN (09:42)
[2022-05-09 11:04] LABS: Bacteria,Urine Occasional /HPF (Few); Bilirubin,Urine Small mg/dL (Negative); Blood, Urine Negative (Negative); Glucose,Urine (UA) Negative (Negative); Ketones,Urine Negative (Negative); Mucus,Urine Occasional /LPF (Occasional); Nitrite,Urine Negative (Negative); Protein,Urine Trace mg/dL (Negative); RBC,Urine 1 /HPF (0-4); Squamous Epithelial Cell,Urine Occasional /HPF (0-10); Urine Appearance Clear (Clear); Urine Color Yellow (Yellow); Urine pH 6.5 (4.5-8.0)
[2022-05-09] MEDS: SODIUM CHLORIDE 0.9% 1,000 ML IV SCH (12:31)
[2022-05-09] MEDS ORDERED: GLUCAGON 1 MG VIAL IM PRN (13:45)
[2022-05-10] MEDS: SODIUM CHLORIDE 0.9% 1,000 ML IV SCH ×4 (00:30→17:37)
[2022-05-10 05:53] LABS: Basophils % 0.1 % (0.0-0.8); Eosinophils % 0.1 % (0.00-10.9); Hematocrit 25.4 VOL% (42.0-52.0); Hemoglobin 8.3 GM/DL (14.0-18.0); Immature Granulocytes % 0.8 %; Immature Granulocytes Absolute 0.13 #; Lymphocytes # 0.4 10*3/uL (1.4-4.0); Lymphocytes % 2.7 % (21.2-54.2); Mean Corpuscular HGB Conc 32.7 GM/DL (32-36); Mean Corpuscular Volume 79.1 FL (87-102); Mean Platelet Volume 9.3 FL (9.6-12.0); Monocytes # 1.2 10*3/uL (0.11-0.8); Monocytes % 7.6 % (1.7-12.7); Neutrophils % 88.7 % (38.7-73.9); Platelet Count 481 T/CUMM (130-400); Red Blood Count 3.21 MC/CUMM (3.8-5.5); Red Cell Distribution Width 18.5 % (9.3-17.3); White Blood Count 15.3 T/CUMM (4-12)
[2022-05-10 06:18] LABS: Blood Urea Nitrogen 23 MG/DL (7-18); Calcium 8.5 MG/DL (8.5-10.1); Carbon Dioxide 26 MMOL/L (21-32); Chloride 87 MMOL/L (98-107); Cholesterol 64 MG/DL (50-200); HDL Cholesterol < 10 MG/DL (40-60); Osmolality,Calculated 253.4 MOS/KG (273-304); Potassium 2.7 MMOL/L (3.5-5.1); Sodium 126 MMOL/L (136-145); Triglycerides 92 MG/DL (2-150); VLDL Cholesterol 18.4 MG/DL
[2022-05-10 06:20] LABS: Glucose 49 MG/DL (74-106)
[2022-05-10 06:21] LABS: Band Neutrophils 4 % (0-10); Lymphocytes 1 % (20-55); Total Cells Counted 100
[2022-05-10 06:22] LABS: Anisocytosis 1+; Burr Cells Few; Hypochromia 2+; Platelet Estimate Normal
[2022-05-10] MEDS: PANTOPRAZOLE 40 MG TABLET PO SCH (08:39)
[2022-05-10] MEDS ORDERED: NITROGLYCERIN SL 0.4 MG TABLET SL PRN (12:54)
[2022-05-10 16:36] LABS: RBC,Urine 6229 /HPF (0-4)
[2022-05-10 16:37] LABS: Bilirubin,Urine Large mg/dL (Negative); Blood, Urine Large mg/dL (Negative); Glucose,Urine (UA) Negative (Negative); Ketones,Urine Trace mg/dL (Negative); Nitrite,Urine Negative (Negative); Protein,Urine >=300 mg/dL (Negative); Urine Appearance Cloudy (Clear); Urine Color Red (Yellow); Urine Specific Gravity 1.015 (1.001-1.035); Urine pH 5.5 (4.5-8.0)
[2022-05-10] MEDS: INSULIN LISPRO 100 UNIT/ML SUBCUT SCH ×2 (16:46→20:22)
[2022-05-11] MEDS: SODIUM CHLORIDE 0.9% 1,000 ML IV SCH (02:52)
[2022-05-11 04:56] LABS: Basophils % 0.1 % (0.0-0.8); Eosinophils % 0.1 % (0.00-10.9); Hematocrit 23.8 VOL% (42.0-52.0); Hemoglobin 7.7 GM/DL (14.0-18.0); Immature Granulocytes % 0.8 %; Immature Granulocytes Absolute 0.12 #; Lymphocytes # 0.6 10*3/uL (1.4-4.0); Lymphocytes % 3.7 % (21.2-54.2); Mean Corpuscular HGB Conc 32.4 GM/DL (32-36); Mean Corpuscular Volume 80.1 FL (87-102); Mean Platelet Volume 9.2 FL (9.6-12.0); Monocytes # 1.1 10*3/uL (0.11-0.8); Monocytes % 7.2 % (1.7-12.7); Neutrophils % 88.1 % (38.7-73.9); Platelet Count 417 T/CUMM (130-400); Red Blood Count 2.97 MC/CUMM (3.8-5.5); Red Cell Distribution Width 18.4 % (9.3-17.3); White Blood Count 15.5 T/CUMM (4-12)
[2022-05-11 05:17] LABS: Albumin 1.5 G/DL (3.4-5.0); Bilirubin,Total 5.3 MG/DL (0.20-1.00); Calcium 8.3 MG/DL (8.5-10.1); Osmolality,Calculated 252.5 MOS/KG (273-304); Total Protein 6.2 G/DL (6.4-8.2)
[2022-05-11 05:46] LABS: Anisocytosis 2+; Burr Cells 1+; Eosinophils 1 % (0-10); Lymphocytes 6 % (20-55); Platelet Estimate Normal; Poikilocytosis 1+; Target Cells Few; Total Cells Counted 100
[2022-05-11 05:47] LABS: Macrocytosis Slight; Polychromasia Slight
[2022-05-11 08:11] LABS: % Iron Saturation 13.3 % (18-50); Ferritin 491.1 ng/mL (26-388)
[2022-05-11] MEDS: INSULIN LISPRO 100 UNIT/ML SUBCUT SCH ×4 (08:16→21:18)
[2022-05-11] MEDS ORDERED: ATORVASTATIN 80 MG TABLET PO SCH (09:00)
[2022-05-11] MEDS ORDERED: DAPAGLIFLOZIN 10 MG TABLET PO SCH (09:00)
[2022-05-11] MEDS: DIGOXIN 0.125 MG TABLET PO SCH (09:17)
[2022-05-11] MEDS: PANTOPRAZOLE 40 MG TABLET PO SCH (09:18)
[2022-05-11] MEDS: MAGNESIUM OXIDE 400 MG TABLET PO SCH (09:18)
[2022-05-11] MEDS: EZETIMIBE 10 MG TABLET PO SCH (09:18)
[2022-05-11] MEDS: cefTRIAXone 1,000 MG in SODIUM CHLORIDE 0.9% 100 ML IV SCH (09:31)
[2022-05-11] MEDS ORDERED: SODIUM CHLORIDE 0.9% 1,000 ML IV PRN (10:41)
[2022-05-11] MEDS ORDERED: FUROSEMIDE 40 MG/4 ML VIAL IV ONE ×2 (11:18→18:00)
[2022-05-11] MEDS ORDERED: BENZONATATE 100 MG CAPSULE PO PRN (11:19)
[2022-05-11] MEDS: FERROUS SULFATE 325 MG TABLET PO SCH (21:17)
[2022-05-12 05:34] LABS: Basophils % 0.1 % (0.0-0.8); Eosinophils % 0.1 % (0.00-10.9); Hemoglobin 8.8 GM/DL (14.0-18.0); Immature Granulocytes % 1.9 %; Lymphocytes # 0.6 10*3/uL (1.4-4.0); Lymphocytes % 4.1 % (21.2-54.2); Mean Corpuscular HGB Conc 32.6 GM/DL (32-36); Mean Corpuscular Volume 78.9 FL (87-102); Mean Platelet Volume 9.5 FL (9.6-12.0); Monocytes % 6.2 % (1.7-12.7); NRBC # 0.02 10*3/uL; Neutrophils % 87.6 % (38.7-73.9); Platelet Count 410 T/CUMM (130-400); Red Blood Count 3.42 MC/CUMM (3.8-5.5); Red Cell Distribution Width 18.1 % (9.3-17.3); White Blood Count 15.4 T/CUMM (4-12)
[2022-05-12 06:01] LABS: Hypochromia 1+; Lymphocytes 5 % (20-55); Microcytosis 1+; Platelet Estimate Adequate; Total Cells Counted 100
[2022-05-12 06:20] LABS: Albumin 1.5 G/DL (3.4-5.0); Bilirubin,Total 7.2 MG/DL (0.20-1.00); Calcium 8.3 MG/DL (8.5-10.1); Osmolality,Calculated 246.9 MOS/KG (273-304); Osmolality,Calculated 252.5 MOS/KG (273-304); Potassium 2.8 MMOL/L (3.5-5.1); Total Protein 6.3 G/DL (6.4-8.2)
[2022-05-12] MEDS ORDERED: POTASSIUM CHLORIDE 20 MEQ TABLET PO PRN (06:52)
[2022-05-12] MEDS ORDERED: POTASSIUM CHLORIDE 20 MEQ TABLET PO ONE ×2 (07:38→11:00)
[2022-05-12] MEDS: INSULIN LISPRO 100 UNIT/ML SUBCUT SCH ×4 (08:13→21:33)
[2022-05-12] MEDS ORDERED: metOLazone 5 MG TABLET PO SCH (09:00)
[2022-05-12] MEDS: cefTRIAXone 1,000 MG in SODIUM CHLORIDE 0.9% 100 ML IV SCH (10:21)
[2022-05-12] MEDS: DIGOXIN 0.125 MG TABLET PO SCH (10:22)
[2022-05-12] MEDS: PANTOPRAZOLE 40 MG TABLET PO SCH (10:22)
[2022-05-12] MEDS: MAGNESIUM OXIDE 400 MG TABLET PO SCH (10:22)
[2022-05-12] MEDS: EZETIMIBE 10 MG TABLET PO SCH (10:22)
[2022-05-12] MEDS: FERROUS SULFATE 325 MG TABLET PO SCH ×2 (10:22→21:33)
[2022-05-12] MEDS ORDERED: DEXTROSE 10% 1,000 ML IV PRN (16:44)
[2022-05-12] MEDS ORDERED: AMINO ACIDS/DEXT/LYTES 4.25-5% 1,000 ML IV SCH (17:00)
[2022-05-12] MEDS: DEXTROSE 10% 250 ML BAG IV PRN (19:51)
[2022-05-12] MEDS ORDERED: MELATONIN 3 MG TABLET PO PRN (21:27)
[2022-05-13 05:26] LABS: Basophils % 0.1 % (0.0-0.8); Eosinophils % 0.3 % (0.00-10.9); Hematocrit 27.5 VOL% (42.0-52.0); Immature Granulocytes % 1.4 %; Immature Granulocytes Absolute 0.21 #; Lymphocytes # 0.5 10*3/uL (1.4-4.0); Lymphocytes % 3.6 % (21.2-54.2); Mean Corpuscular HGB Conc 32.7 GM/DL (32-36); Mean Platelet Volume 9.5 FL (9.6-12.0); Monocytes # 1.1 10*3/uL (0.11-0.8); Monocytes % 7.3 % (1.7-12.7); Neutrophils % 87.3 % (38.7-73.9); Platelet Count 450 T/CUMM (130-400); Red Blood Count 3.48 MC/CUMM (3.8-5.5); Red Cell Distribution Width 18.5 % (9.3-17.3); White Blood Count 15.15 T/CUMM (4-12)
[2022-05-13 05:53] LABS: Hypochromia 1+; Lymphocytes 4 % (20-55); Microcytosis 1+; Platelet Estimate Adequate; Total Cells Counted 100
[2022-05-13 06:04] LABS: Albumin 1.4 G/DL (3.4-5.0); Bilirubin,Total 7.5 MG/DL (0.20-1.00); Calcium 8.4 MG/DL (8.5-10.1); Osmolality,Calculated 244.1 MOS/KG (273-304); Potassium 3.5 MMOL/L (3.5-5.1); Total Protein 6.4 G/DL (6.4-8.2)
[2022-05-13] MEDS: DEXTROSE 10% 250 ML BAG IV PRN ×2 (06:28→19:45)
[2022-05-13] MEDS: EZETIMIBE 10 MG TABLET PO SCH (09:20)
[2022-05-13] MEDS: MAGNESIUM OXIDE 400 MG TABLET PO SCH (09:20)
[2022-05-13] MEDS: DIGOXIN 0.125 MG TABLET PO SCH (09:20)
[2022-05-13] MEDS: FERROUS SULFATE 325 MG TABLET PO SCH ×2 (09:20→20:55)
[2022-05-13] MEDS: PANTOPRAZOLE 40 MG TABLET PO SCH (09:22)
[2022-05-13] MEDS: INSULIN LISPRO 100 UNIT/ML SUBCUT SCH ×4 (09:22→20:49)
[2022-05-13] MEDS: cefTRIAXone 1,000 MG in SODIUM CHLORIDE 0.9% 100 ML IV SCH (10:52)
[2022-05-13] MEDS ORDERED: FUROSEMIDE 20 MG/2 ML VIAL IV ONE (11:57)
[2022-05-13] MEDS: MORPHINE 2 MG/1 ML SYRINGE IV PRN (14:59)
[2022-05-13] MEDS: SODIUM CHLORIDE 1 GM TABLET PO SCH ×2 (16:20→20:55)
[2022-05-14] MEDS: MORPHINE 2 MG/1 ML SYRINGE IV PRN ×3 (02:26→14:13)
[2022-05-14] MEDS: DEXTROSE 10% 250 ML BAG IV PRN (04:45)
[2022-05-14 05:22] LABS: Basophils % 0.1 % (0.0-0.8); Eosinophils % 0.1 % (0.00-10.9); Hematocrit 27.9 VOL% (42.0-52.0); Hemoglobin 9.3 GM/DL (14.0-18.0); Immature Granulocytes % 1.4 %; Immature Granulocytes Absolute 0.23 #; Lymphocytes # 0.3 10*3/uL (1.4-4.0); Lymphocytes % 1.8 % (21.2-54.2); Mean Corpuscular HGB Conc 33.3 GM/DL (32-36); Mean Corpuscular Volume 77.7 FL (87-102); Mean Platelet Volume 9.4 FL (9.6-12.0); NRBC # 0.02 10*3/uL; Neutrophils % 90.6 % (38.7-73.9); Platelet Count 424 T/CUMM (130-400); Red Blood Count 3.59 MC/CUMM (3.8-5.5); Red Cell Distribution Width 18.8 % (9.3-17.3); White Blood Count 16.89 T/CUMM (4-12)
[2022-05-14 05:57] LABS: Band Neutrophils 1 % (0-10); Hypochromia Slight; Lymphocytes 2 % (20-55); Microcytosis Slight; Platelet Estimate Adequate; Total Cells Counted 100
[2022-05-14 06:00] LABS: Albumin 1.3 G/DL (3.4-5.0); Bilirubin,Total 7.7 MG/DL (0.20-1.00); Calcium 8.6 MG/DL (8.5-10.1); Osmolality,Calculated 240.5 MOS/KG (273-304); Total Protein 6.5 G/DL (6.4-8.2)
[2022-05-14 07:46] LABS: Calcium 8.1 MG/DL (8.5-10.1); Osmolality,Calculated 243.6 MOS/KG (273-304); Potassium 4.3 MMOL/L (3.5-5.1)
[2022-05-14] MEDS: EZETIMIBE 10 MG TABLET PO SCH (08:27)
[2022-05-14] MEDS: PANTOPRAZOLE 40 MG TABLET PO SCH (08:27)
[2022-05-14] MEDS: DIGOXIN 0.125 MG TABLET PO SCH (08:27)
[2022-05-14] MEDS: FERROUS SULFATE 325 MG TABLET PO SCH (08:27)
[2022-05-14] MEDS: SODIUM CHLORIDE 1 GM TABLET PO SCH ×2 (08:27→14:21)
[2022-05-14] MEDS: cefTRIAXone 1,000 MG in SODIUM CHLORIDE 0.9% 100 ML IV SCH (08:36)
[2022-05-14] MEDS: INSULIN LISPRO 100 UNIT/ML SUBCUT SCH ×2 (09:11→14:57)
[2022-05-14] MEDS: MAGNESIUM OXIDE 400 MG TABLET PO SCH (10:38)
[2022-05-14] MEDS ORDERED: LEVOFLOXACIN INJ 750 MG/150 ML PREMIX IV ONE (11:21)
[2022-05-14] MEDS ORDERED: HEPARIN 5,000 UNIT/1 ML VIAL SUBCUT SCH (11:30)
[2022-05-14 12:17] VITALS: BP 118/76
[2022-05-14 14:37] LABS: Calcium 8.4 MG/DL (8.5-10.1); Osmolality,Calculated 245.5 MOS/KG (273-304); Potassium 4.3 MMOL/L (3.5-5.1)
[2022-05-16] MEDS ORDERED: LEVOFLOXACIN INJ 500 MG/100 ML PREMIX IV SCH (11:30)
== END 2022-05-14 15:38 | disposition left against medical advice (07) | DRG 375 ==
LOC: N.ED 05:56 → SUATTDRO 09:43 → N.EDINP 09:43 → N.TELES 11:48
PROVIDERS: ADMIT Family Medicine; ATTEND Hospitalist